=== PATIENT | female | born 1960 | race Caucasian/White ===

== ENCOUNTER 2019-02-09 11:54 | Day surgery (SDC) | payer BC ==
[2019-02-09 12:23] VITALS: BMI 19.1
[2019-02-09] MEDS ORDERED: SCOPOLAMINE HYDROBROMIDE 1 PATCH PATCH.TD72 ONE (14:10)
[2019-02-09] MEDS ORDERED: ceFAZolin SODIUM 1 GM VIAL ONE (14:50)
[2019-02-09] MEDS ORDERED: MIDAZOLAM HCL 2 MG/2 ML SINGLE DOSE VIAL ONE (14:50)
[2019-02-09] MEDS ORDERED: DEXAMETHASONE SOD PHOSPHATE 4 MG/1 ML VIAL ONE (14:50)
[2019-02-09] MEDS ORDERED: LIDOCAINE 1%-EPI 1:100,000 30 ML MDV IJ ONE (14:54)
[2019-02-09] MEDS ORDERED: ceFAZolin SODIUM 1 GM VIAL IVPB ONE (15:10)
[2019-02-09] MEDS ORDERED: PROPOFOL 20 ML ONE (15:11)
[2019-02-09] MEDS ORDERED: BUPIVACAINE HCL/PF 0.5% (5 MG/ML) 30 ML VIAL IJ ONE (15:30)
--- NOTE | 2019-02-09 16:52 | OP ---
Operative Note - Note: Operative Date: 02/09/19 Pre-Operative Diagnosis: 1. Bilateral acquired chest wall deformity status post bilateral mastectomy. 2. Asymmetry of reconstructed chest wall. 3. Malposition of bilateral breast implants. 4. Mechanical complication of breast implants Operation: 1. Right breast reconstruction utilizing other technique. 2. Left breast reconstruction utilizing other technique. 3. Right breast capsulectomy, removal of implant device, and repair with tissue rearrangement and replacement. 4. Left breast reconstruction with capsulectomy, removal of breast implant, and tissue rearrangement Findings: as dictated Post-Operative Diagnosis: Same as Pre-op Surgeon: Bruno Hanks Rn Utilization Management Um: Zeynep Adams Anesthesia: General, Local Specimens Removed: portion of b/l capsules Estimated Blood Loss (mls): 10 (ml) Fluid Volume Replaced (mls): 500 (ml lr) Operative Report Dictated: Yes
--- NOTE | 2019-02-09 16:52 | SURG ---
Surgery Palaeontologist Note Palaeontologist: Zeynep Adams PA-C (Suzy) Date of Service: 02/09/19 Diagnosis: 1. Bilateral acquired chest wall deformity status post bilateral mastectomy. 2. Asymmetry of reconstructed chest wall. 3. Malposition of bilateral breast implants. 4. Mechanical complication of breast implants Procedure: 1. Right breast reconstruction utilizing other technique. 2. Left breast reconstruction utilizing other technique. 3. Right breast capsulectomy, removal of implant device, and repair with tissue rearrangement and replacement. 4. Left breast reconstruction with capsulectomy, removal of breast implant, and tissue rearrangement I was present for the entirety of the operative procedure. For further detail, please refer to operative report. Visit type - Case Type Case Type: Scheduled - Emergency Emergency Visit: No - New patient This patient is new to me today: Yes Date on this admission: 02/15/19 - Critical Care Critical Care patient: No
[2019-02-09] MEDS ORDERED: ACETAMINOPHEN INJECTION 100 ML IVPB ONE (17:39)
[2019-02-09] MEDS ORDERED: ACETAMINOPHEN 1000 MG/100 ML VIAL (NON FORMULARY) IVPB ONE (17:43)
[2019-02-09] MEDS ORDERED: oxyCODONE HCL 5 MG TABLET PO PRN ×2 (17:47)
[2019-02-09] MEDS ORDERED: ONDANSETRON 4 MG/2 ML VIAL IVPUSH PRN (17:47)
[2019-02-09] MEDS ORDERED: LACTATED RINGERS SOLUTION 1,000 ML IV SCH (18:00)
[2019-02-09 18:24] VITALS: TEMP 97.6
[2019-02-09] MEDS ORDERED: oxyCODONE HCL 5 MG TABLET PO ONE (18:39)
[2019-02-09] MEDS ORDERED: oxyCODONE HCL 5 MG TABLET ONE (18:41)
[2019-02-09 19:37] VITALS: BP 104/55; PULSE 70
--- NOTE | 2019-02-10 14:23 | OP ---
DATE OF OPERATION: 02/09/2019 SURGEON: Neda Hanks MD FACTORY MAINTENANCE TECHNICIAN: GRETEL Espinosa PREOPERATIVE DIAGNOSES: 1. Bilateral acquired chest wall deformity status post left bilateral mastectomy. 2. Asymmetry of reconstructed chest wall. 3. Malposition of bilateral breast implants. 4. Mechanical complication of breast implants. POSTOPERATIVE DIAGNOSES: 1. Bilateral acquired chest wall deformity status post left bilateral mastectomy. 2. Asymmetry of reconstructed chest wall. 3. Malposition of bilateral breast implants. 4. Mechanical complication of breast implants. OPERATIVE PROCEDURES: 1. Right breast reconstruction utilizing other technique. 2. Left breast reconstruction utilizing other technique. 3. Right breast capsulectomy, removal of implant device, and repair with tissue rearrangement and replacement. 4. Left breast reconstruction with capsulectomy, removal and replacement of left breast implant with tissue rearrangement. 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 PROCEDURE IN DETAIL: The patient was taken to the operating room, and after induction of general anesthesia in supine position, the markings, which were made in the standing position, an outline of the mastectomy scar with rearrangement, which was marked in the holding area preoperatively with the patient's knowledge, discussion, and agreement to the plan. After time-out, attention was turned to the mastectomy scars. After previous prepping and draping in the usual fashion, and incision was made down through the right breast mastectomy scar, through the skin, into the deep subcutaneous tissue, and down to the underlying capsule. A thickened right breast capsule was seen on the lower pole of the breast. This was incised and then excised and sent for pathologic diagnosis in order to rule out ALCL. At this point, the implant device was removed and sent for pathologic diagnosis, and a complete examination of the capsule was carried out. Capsulectomy was performed in the upper pole of the breast itself. After copious irrigation with both triple antibiotic solution and Betadine, attention was turned to the opposite breast. The exact same procedure was carried out incising and excising the mastectomy scar on the lower pole of the left breast and then performing the capsulectomy on the left breast. This tissue was also sent independently for examination. Once this was accomplished, tissue rearrangement was carried out. Copious irrigation with the same solutions was also carried out, and advancement flaps of both the capsule and the tissue were advanced and closed. Once this was accomplished to correct the malposition and deformity, implants were selected for this patient and then placed into the subpectoral pocket. On the right breast, a Sientra Smooth Round High Profile style 107, 415-mL implant was placed on the right side and then, because of the asymmetry, a Sientra Smooth Round High Profile style 107, 440-mL implant was placed on the left breast. Good shape and contour was seen bilaterally. Advancement flaps of the capsule and closure in 3 layers was carried out using 2-0 Vicryl sutures on the capsule and deep portion of the breast, 3-0 PDS in a deep dermal fashion, and a 3-layered closure with 4-0 Biosyn in a subcuticular fashion on both breasts independently. Both breasts were dressed with Dermabond and Steri-Strips dressings. She was awakened and taken to the recovery room after being placed with a fluff dressing and a surgery bra. She tolerated the procedure well. NEDA HANKS M.D. [id number]
--- NOTE | 2019-02-16 14:39 | PATH ---
Surgical Pathology Report Patient Name: SATINDER MOREL [facility]. Rec. #: [id number] /Age/Gender: 1960 (Age: 58) / F Account: [id number] Location: [facility] Taken: 02/09/2019 Received: 02/10/2019 Reported: 02/16/2019 Physicians: Bruno Hanks Specimen(s) Received A: IMPLANT LEFT B: IMPLANT RIGHT C: LEFT BREAST CAPSULE D: RIGHT BREAST CAPSULE Clinical History Breast CA and radiation history Textured implant removal r/o ALCL Final Diagnosis A. IMPLANT, LEFT, REMOVAL: IMPLANT, DESCRIBED (GROSS EXAMINATION ONLY). B. IMPLANT, RIGHT, REMOVAL: IMPLANT, DESCRIBED (GROSS EXAMINATION ONLY). C. CAPSULE, LEFT BREAST, CAPSULECTOMY: FIBROUS CAPSULE. SKIN WITH NO SIGNIFICANT PATHOLOGIC FINDINGS. D. CAPSULE, RIGHT BREAST, CAPSULECTOMY: FIBROUS CAPSULE AND SKELETAL MUSCLE WITH FOCI OF HISTIOCYTIC AND GIANT CELL REACTION WITH MILD ACUTE AND CHRONIC INFLAMMATION. (SEE NOTE). SKIN WITH NO PATHOLOGIC FINDINGS. Note: No atypical cells are identified. Electronically Signed Johnna Garcia M.D. Gross Description A. Received in formalin, labeled "implant left" is a 14 x 14 x 2.5 cm intact breast implant. For gross examination only. B. Received in formalin, labeled "implant left" is a 13.5 x 12.5 x 3.5 cm intact breast implant. For gross examination only. C. Received in formalin, labeled "left breast capsule" are two portions of szymanski tissue, consistent with capsule, measuring 3.8 cm and 6.5 cm in greatest dimension. The Specimens are sectioned and entirely submitted in two cassettes. D. Received in formalin, labeled "right breast capsule" and a 3.5 x 2.4 x 0.2 cm portion of dense, fibrous tissue, consistent with capsule. The specimen is sectioned and entirely submitted in three cassettes. AE/02/14/2019 ebram/02/14/2019
== END 2019-02-09 19:30 | disposition home or self-care (01) ==
LOC: JASU-SURG 11:54
PROVIDERS: ATTEND Plastic Surgery
PROC: 0HPU0JZ Removal of Synthetic Substitute from Left Breast, Open Approach (ICD-10-PCS; 2019-02-09)
PROC: 0HPT0JZ Removal of Synthetic Substitute from Right Breast, Open Approach (ICD-10-PCS; 2019-02-09)
PROC: 0HRV0JZ Replacement of Bilateral Breast with Synthetic Substitute, Open Approach (ICD-10-PCS; 2019-02-09)
PROC: 0HRV07Z Replacement of Bilateral Breast with Autologous Tissue Substitute, Open Approach (ICD-10-PCS; principal; 2019-02-09 13:30)
DX: M95.4 Acquired deformity of chest and rib (principal); Z90.13 Acquired absence of bilateral breasts and nipples; N95.0 Postmenopausal bleeding; N95.1 Menopausal and female climacteric states; T85.41XA Breakdown (mechanical) of breast prosthesis and implant, initial encounter; T85.42XA Displacement of breast prosthesis and implant, initial encounter; Y83.8 Other surgical procedures as the cause of abnormal reaction of the patient, or of later complication, without mention of misadventure at the time of the procedure; Y92.89 Other specified places as the place of occurrence of the external cause
CPT/HCPCS: 88300-TC; 88304-TC; 94760; J0131